=== PATIENT | male | born 1960 | race Caucasian/White ===

== ENCOUNTER 2018-05-27 06:55 | Observation (INO) | payer OTHER ==
[2018-05-27 07:59] LABS: ANION GAP 14.4; CHLORIDE,CL 95 mmol/L (101-111); SODIUM,NA 130 mmol/L (135-145)
--- NOTE | 2018-05-27 08:17 | EDM.PDOC ---
ED HPI GENERAL MEDICAL PROBLEM - General Chief Complaint: Skin Complaint Stated Complaint: [id number] WOUND ON LEG GETTING WORSE Time Seen by Provider: 05/27/18 07:09 Source of Information: Reports: Patient, RN, RN Notes Reviewed History Limitations: Reports: No Limitations - History of Present Illness INITIAL COMMENTS - FREE TEXT/NARRATIVE: Patient presented to ER with complaint of lethargy, fever, chills, diarrhea, headache, generalized body aches, and decreased appetite. This began x2 days ago. 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 He states he fell about 12 years ago and lost all feeling in feet and legs. The osteomyelitis began from a wound on the foot. He developed a sore on the bottom of the left foot after catching it on a door threshold. He states the wound has became discolored and has some serous drainage. Patient is on Coumadin after a lot from a PICC Line. He has had no nausea, vomiting, chest pain or shortness of breath. Onset: Gradual Duration: Getting Worse Location: Reports: Generalized Quality: Reports: Ache Severity: Severe Improves with: Reports: None Worsens with: Reports: None Associated Symptoms: Reports: No Other Symptoms Headache Pain Score (Numeric/FACES): 4 - Related Data Allergies Allergy/AdvReac Type Severity Reaction Status Date / Time codeine Allergy Nervousness Verified 05/27/18 09:31 Home Meds: Home Meds Warfarin [Coumadin] 5 mg PO DAILY 05/27/18 [History] levETIRAcetam [Keppra] 500 mg PO BID 05/27/18 [History] Social & Family History - Tobacco Use Smoking Status *Q: Former Smoker Used Tobacco, but Quit: Yes Month/Year Tobacco Last Used: 2011 - Recreational Drug Use Recreational Drug Use: No ED ROS GENERAL - Review of Systems Review Of Systems: ROS reveals no pertinent complaints other than HPI. ED EXAM, SKIN/RASH Exam: See Below Exam Limited By: No Limitations General Appearance: Alert, WD/WN, No Apparent Distress Eye Exam: Bilateral Eye: EOMI, Normal Inspection, PERRL Ears: Normal External Exam, Normal Canal, Hearing Grossly Normal, Normal TMs Nose: Normal Inspection, Normal Mucosa, No Blood Throat/Mouth: Normal Inspection, Normal Lips, Normal Teeth, Normal Gums, Normal Oropharynx, Normal Voice, No Airway Compromise Head: Atraumatic, Normocephalic Neck: Normal Inspection, Supple, Non-Tender, Full Range of Motion Respiratory/Chest: No Respiratory Distress, Lungs Clear, Normal Breath Sounds, No Accessory Muscle Use, Chest Non-Tender Cardiovascular: Normal Peripheral Pulses GI/Abdominal: Normal Bowel Sounds, Soft, Non-Tender, No Organomegaly, No Distention, No Abnormal Bruit, No Mass (Male) Exam: Deferred Rectal (Males) Exam: Deferred Back Exam: Normal Inspection, Full Range of Motion, NT Extremities: Normal Inspection, Normal Range of Motion, Non-Tender, No Pedal Edema, Normal Capillary Refill Neurological: Alert, Oriented, CN II-XII Intact, Normal Cognition, Normal Gait, Normal Reflexes, No Motor/Sensory Deficits Psychiatric: Normal Affect, Normal Mood Skin: Warm, Other (moist) Lymphatic: Other (anterior cervical +2-3) Course - Vital Signs Last Recorded V/S: Last Vital Signs Temp 98.4 F 05/27/18 09:29 Pulse 79 05/27/18 09:29 Resp 20 05/27/18 09:29 BP 141/86 H 05/27/18 09:29 Pulse Ox 97 05/27/18 09:29 - Orders/Labs/Meds Orders: Active Orders 24 hr Category Date Time Status CULTURE BLOOD [BC] Stat Lab 05/27/18 07:30 Received CULTURE BLOOD [BC] Stat Lab 05/27/18 07:56 Received CULTURE WOUND [RM] Urgent Lab 05/27/18 07:37 Received Blood Culture x2 Reflex Set [OM.PC] Stat Oth 05/27/18 07:50 Ordered Medication Orders Acetaminophen (Tylenol) 650 mg PO Q4H PRN PRN Reason: Pain (Mild 1-3)/fever Docusate Sodium (Colace) 100 mg PO BID PRN PRN Reason: Constipation Piperacillin Sod/Tazobactam (Sod 4.5 gm/ Sodium Chloride) 100 mls @ 200 mls/hr IV Q6HR ANAYELI Sodium Chloride (Normal Saline) 1,000 mls @ 125 mls/hr IV ASDIRECTED ANAYELI Potassium Chloride 20 meq/ (Premix) 100 mls @ 50 mls/hr IV ONETIME ONE Stop: 05/27/18 12:59 Vancomycin HCl 1.5 gm/ Sodium (Chloride) 500 mls @ 333.333 mls/hr IV Q8H ANAYELI Levetiracetam (Keppra) 500 mg PO BID [facility] Magnesium Hydroxide (Milk Of Magnesia) 30 ml PO Q12H PRN PRN Reason: Constipation Ondansetron HCl (Zofran) 4 mg IVPUSH Q8H PRN PRN Reason: Nausea/Vomiting Vancomycin HCl (Pharmacy To Dose - Vancomycin) 1 dose .XX ASDIRECTED [facility] Warfarin Sodium (Pharmacy To Dose - Warfarin) 1 dose .XX ASDIRECTED [facility] Warfarin Sodium (Coumadin) 5 mg PO ONETIME ONE Stop: 05/27/18 18:01 Labs: Laboratory Tests 05/27/18 05/27/18 05/27/18 Range/Units 07:32 07:32 07:32 WBC 10.0 (5.0-10.0) 10^3/uL RBC 5.15 (4.6-6.2) 10^6/uL Hgb 15.4 (14.0-18.0) g/dL Hct 44.9 (40.0-54.0) % MCV 87.2 (80-100) fL MCH 29.9 (27.0-34.0) pg MCHC 34.3 (33.0-35.0) g/dL Plt Count 118 L (150-450) 10^3/uL Neut % (Auto) 71.2 (42.2-75.2) % Lymph % (Auto) 15.6 L (20.5-50.1) % [place] % (Auto) 12.9 H (2-8) % Eos % (Auto) 0.1 L (1.0-3.0) % Baso % (Auto) 0.2 (0.0-1.0) % PT 19.7 H (9.0-12.0) SEC INR 2.0 H (0.9-1.2) Sodium 130 L (135-145) mmol/L Potassium 3.4 L (3.6-5.0) mmol/L Chloride 95 L (101-111) mmol/L Carbon Dioxide 24.0 (21.0-31.0) mmol/L Anion Gap 14.4 BUN 11 (7-18) mg/dL Creatinine 1.1 (0.6-1.3) mg/dL Est Cr Clr Drug Dosing 93.38 mL/min Estimated GFR (MDRD) > 60 BUN/Creatinine Ratio 10.00 Glucose 116 H (74-105) mg/dL Lactic Acid (0.5-2.2) mmol/L Calcium 8.6 (8.4-10.2) mg/dl Total Bilirubin 2.1 H (0.2-1.0) mg/dL AST 25 (10-42) IU/L ALT 16 (10-60) IU/L Alkaline Phosphatase 70 (42-121) IU/L Total Protein 8.6 H (6.7-8.2) g/dl Albumin 3.6 (3.2-5.5) g/dl Globulin 5.0 Albumin/Globulin Ratio 0.72 09/15/18 Range/Units 07:32 WBC (5.0-10.0) 10^3/uL RBC (4.6-6.2) 10^6/uL Hgb (14.0-18.0) g/dL Hct (40.0-54.0) % MCV (80-100) fL MCH (27.0-34.0) pg MCHC (33.0-35.0) g/dL Plt Count (150-450) 10^3/uL Neut % (Auto) (42.2-75.2) % Lymph % (Auto) (20.5-50.1) % [place] % (Auto) (2-8) % Eos % (Auto) (1.0-3.0) % Baso % (Auto) (0.0-1.0) % PT (9.0-12.0) SEC INR (0.9-1.2) Sodium (135-145) mmol/L Potassium (3.6-5.0) mmol/L Chloride (101-111) mmol/L Carbon Dioxide (21.0-31.0) mmol/L Anion Gap BUN (7-18) mg/dL Creatinine (0.6-1.3) mg/dL Est Cr Clr Drug Dosing mL/min Estimated GFR (MDRD) BUN/Creatinine Ratio Glucose (74-105) mg/dL Lactic Acid 2.3 H (0.5-2.2) mmol/L Calcium (8.4-10.2) mg/dl Total Bilirubin (0.2-1.0) mg/dL AST (10-42) IU/L ALT (10-60) IU/L Alkaline Phosphatase (42-121) IU/L Total Protein (6.7-8.2) g/dl Albumin (3.2-5.5) g/dl Globulin Albumin/Globulin Ratio Influenza A & B: Negative Meds: Medications Generic Name Dose Route Start Last Admin Trade Name Freq PRN Reason Stop Dose Admin Acetaminophen 650 mg 05/27/18 10:50 Tylenol PO Q4H PRN Pain (Mild 1-3)/fever Docusate Sodium 100 mg 05/27/18 10:50 Colace PO BID PRN Constipation Piperacillin Sod/Tazobactam 100 mls @ 200 mls/hr 05/27/18 12:00 Sod 4.5 gm/ Sodium Chloride IV Q6HR ANAYELI Sodium Chloride 1,000 mls @ 125 mls/hr 05/27/18 11:00 Normal Saline IV ASDIRECTED ANAYELI Potassium Chloride 20 meq/ 100 mls @ 50 mls/hr 05/27/18 11:00 Premix IV 05/27/18 12:59 ONETIME ONE Vancomycin HCl 1.5 gm/ Sodium 500 mls @ 333.333 mls/hr 05/27/18 12:00 Chloride IV Q8H ANAYELI Levetiracetam 500 mg 05/27/18 21:00 Keppra PO BID ANAYELI Magnesium Hydroxide 30 ml 05/27/18 10:50 Milk Of Magnesia PO Q12H PRN Constipation Ondansetron HCl 4 mg 05/27/18 10:50 Zofran IVPUSH Q8H PRN Nausea/Vomiting Vancomycin HCl 1 dose 05/27/18 11:00 Pharmacy To Dose - Vancomycin .XX ASDIRECTED [facility] Warfarin Sodium 1 dose 05/27/18 11:00 Pharmacy To Dose - Warfarin .XX ASDIRECTED [facility] Warfarin Sodium 5 mg 05/27/18 18:00 Coumadin PO 05/27/18 18:01 ONETIME ONE - Radiology Interpretation Free Text/Narrative:: Left foot xray: IMPRESSION: 1. Soft tissue swelling with infectious changes noted over the second and third metatarsals dorsally and on the plantar aspect. Findings are consistent with infectious etiology. Early osteomyelitis cannot be excluded. 2. Dislocation of the fourth metatarsophalangeal joint 3. Postoperative changes with amputation of the distal aspects of the second and third toes. Thank you for allowing us to participate in the care of your patient. Dictated and Authenticated by: Cosmo Acuna DO 05/27/2018 11:30 AM Central Time ([place] & [place]) See rad report Departure - Departure Time of Disposition: 08:51 Disposition: Refer to Observation Condition: Fair Clinical Impression: Elevated lactic acid level Wound, open, foot Qualifiers: Encounter type: initial encounter Laterality: left Qualified Code(s): S91.302A - Unspecified open wound, left foot, initial encounter Cellulitis Qualifiers: Site of cellulitis: extremity Site of cellulitis of extremity: lower extremity Laterality: left Qualified Code(s): L03.116 - Cellulitis of left lower limb - Discharge Information *PRESCRIPTION DRUG MONITORING PROGRAM REVIEWED*: No *COPY OF PRESCRIPTION DRUG MONITORING REPORT IN PATIENT SHMUEL: No - My Orders Last 24 Hours: My Active Orders 05/27/18 07:30 CULTURE BLOOD [BC] Stat 05/27/18 07:37 CULTURE WOUND [RM] Urgent 05/27/18 07:50 Blood Culture x2 Reflex Set [OM.PC] Stat 05/27/18 07:56 CULTURE BLOOD [BC] Stat - Assessment/Plan Last 24 Hours: My Active Orders 05/27/18 07:30 CULTURE BLOOD [BC] Stat 05/27/18 07:37 CULTURE WOUND [RM] Urgent 05/27/18 07:50 Blood Culture x2 Reflex Set [OM.PC] Stat 05/27/18 07:56 CULTURE BLOOD [BC] Stat
[2018-05-27] MEDS ORDERED: Ondansetron 4 MG/2 ML SDV IVPUSH PRN (10:50)
[2018-05-27] MEDS ORDERED: Magnesium Hydroxide 400 MG/5 ML Susp 30 ML Cup PO PRN (10:50)
[2018-05-27] MEDS ORDERED: Docusate Sodium 100 MG Cap PO PRN (10:50)
[2018-05-27] MEDS ORDERED: Acetaminophen 325 MG Tab PO PRN (10:50)
[2018-05-27] MEDS ORDERED: Potassium Chloride 20 MEQ in Premix Bag 1 BAG IV ONE (11:00)
[2018-05-27] MEDS: Sodium Chloride 0.9% 1,000 ML IV SCH ×2 (11:40→20:14)
[2018-05-27] MEDS ORDERED: Sodium Chloride 0.9% 10 ML Syringe FLUSH PRN (11:46)
[2018-05-27] MEDS: Piperacillin/Tazobactam 4.5 GM in Sodium Chloride 0.9% 100 ML IV SCH ×2 (11:46→21:01)
[2018-05-27] MEDS ORDERED: Vancomycin 1.5 GM in Sodium Chloride 0.9% 500 ML IV SCH (12:00)
--- NOTE | 2018-05-27 14:36 | PCM.HP ---
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 He presented to ER with redness to the left leg that started yesterday. He said he was fine when going to work in the morning. When he got back from work she noted tenderness, swelling, and redness to the left lower leg. He denies trauma. This is associated with lethargy, chills, one episode of diarrhea, headache, generalized body aches, and decreased appetite. The opend wound too the left foot is been on and off. He denies any discharge, pain or offensive selling to the wound. He says he follows with wound clinic. He denies chest pain, SOB, palpitation. In the ER of the left foot could not r/o early osteomyelitis. eft foot xray: IMPRESSION: 1. Soft tissue swelling with infectious changes noted over the second and third metatarsals dorsally and on the plantar aspect. Findings are consistent with infectious etiology. Early osteomyelitis cannot be excluded. 2. Dislocation of the fourth metatarsophalangeal joint 3. Postoperative changes with amputation of the distal aspects of the second and third toes. Thank you for allowing us to participate in the care of your patient. Dictated and Authenticated by: Cosmo Acuna DO 05/27/2018 11:30 AM Central Time ([place] & [place]) See rad report Onset of Symptoms: Reports: Sudden Duration of Symptoms: Reports: Hour(s): Location: Reports: Lower Extremity, Left Quality: Reports: Sharp Severity: Severe Improves with: Reports: None Worsens with: Reports: None Context: Reports: Activity/Exercise Associated Symptoms: Reports: No Other Symptoms Headache Pain Score (Numeric/FACES): 4 - Related Data Allergies/Adverse Reactions: Allergies Allergy/AdvReac Type Severity Reaction Status Date / Time codeine Allergy Nervousness Verified 05/27/18 09:31 Home Medications: Home Meds Warfarin [Coumadin] 5 mg PO DAILY 05/27/18 [History] levETIRAcetam [Keppra] 500 mg PO BID 05/27/18 [History] Past Medical History HEENT History: Reports: Impaired Vision Other HEENT History: Wears reading glasses Cardiovascular History: Reports: Blood Clots/VTE/DVT Musculoskeletal History: Reports: Amputation, Other (See Below) Other Musculoskeletal History: osteomyelitis Neurological History: Reports: Seizure, Other (See Below) Other Neuro History: 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 - Infectious Disease History Infectious Disease History: Reports: Chicken Pox, Shingles - Past Surgical History HEENT Surgical History: Reports: None Cardiovascular Surgical History: Reports: None GI Surgical History: Reports: Cholecystectomy Musculoskeletal Surgical History: Reports: Amputation Social & Family History - Family History Family Medical History: Noncontributory - Tobacco Use Smoking Status *Q: Former Smoker Years of Tobacco use: 12 Packs/Tins Daily: 1.5 Used Tobacco, but Quit: Yes Month/Year Tobacco Last Used: 2011 Second Hand Smoke Exposure: No - Caffeine Use Caffeine Use: Reports: None - Recreational Drug Use Recreational Drug Use: No H&P Review of Systems - Review of Systems: Review Of Systems: See Below General: Reports: Chills, Malaise, Weakness, Fatigue, Decreased Appetite HEENT: Reports: No Symptoms Pulmonary: Reports: No Symptoms Cardiovascular: Reports: No Symptoms Gastrointestinal: Reports: Anorexia, Diarrhea, Vomiting Genitourinary: Reports: No Symptoms Musculoskeletal: Reports: No Symptoms Skin: Reports: No Symptoms Psychiatric: Reports: No Symptoms Neurological: Reports: No Symptoms Hematologic/Lymphatic: Reports: No Symptoms Immunologic: Reports: No Symptoms Exam - Exam Exam: See Below - Vital Signs Vital Signs: Last Vital Signs Temp 98.4 F 05/27/18 09:29 Pulse 79 05/27/18 09:29 Resp 20 05/27/18 09:29 BP 141/86 H 05/27/18 09:29 Pulse Ox 97 05/27/18 10:50 Weight: 290 lb 6.4 oz - Exam Quality Assessment: DVT Prophylaxis General: Alert, Oriented, 4 HEENT: PERRLA, Hearing Intact, Mucosa Moist & [place], Nares Patent, Normal Nasal Septum, Posterior Pharynx Clear, Conjunctiva Clear, EOMI, EACs Clear, TMs Clear Neck: Supple, Trachea Midline, 2 Lungs: Clear to Auscultation, Normal Respiratory Effort Cardiovascular: Regular Rate, Regular Rhythm GI/Abdominal Exam: Normal Bowel Sounds, Soft, Non-Tender, No Organomegaly, No Distention, No Abnormal Bruit, No Mass, Pelvis Stable (Male) Exam: Deferred Rectal (Males) Exam: Deferred Back Exam: Normal Inspection, Full Range of Motion, NT Extremities: Leg Pain, Increased Warmth, Redness, Other (Redness to the left lower leg) Skin: Warm, Dry, Intact Neurological: Cranial Nerves Intact, Reflexes Equal Bilateral Neuro Extensive - Mental Status: Alert, Oriented x3, Normal Mood/Affect, Normal Cognition Neuro Extensive - Motor, Sensory, Reflexes: CN II-XII Intact, Normal Gait, Normal Reflexes Psychiatric: Alert, Normal Affect, Normal Mood - Patient Data Lab Results Last 24 hrs: Laboratory Results - last 24 hr 05/27/18 05/27/18 05/27/18 Range/Units 07:32 07:32 07:32 WBC 10.0 (5.0-10.0) 10^3/uL RBC 5.15 (4.6-6.2) 10^6/uL Hgb 15.4 (14.0-18.0) g/dL Hct 44.9 (40.0-54.0) % MCV 87.2 (80-100) fL MCH 29.9 (27.0-34.0) pg MCHC 34.3 (33.0-35.0) g/dL Plt Count 118 L (150-450) 10^3/uL Neut % (Auto) 71.2 (42.2-75.2) % Lymph % (Auto) 15.6 L (20.5-50.1) % [place] % (Auto) 12.9 H (2-8) % Eos % (Auto) 0.1 L (1.0-3.0) % Baso % (Auto) 0.2 (0.0-1.0) % PT 19.7 H (9.0-12.0) SEC INR 2.0 H (0.9-1.2) Sodium 130 L (135-145) mmol/L Potassium 3.4 L (3.6-5.0) mmol/L Chloride 95 L (101-111) mmol/L Carbon Dioxide 24.0 (21.0-31.0) mmol/L Anion Gap 14.4 BUN 11 (7-18) mg/dL Creatinine 1.1 (0.6-1.3) mg/dL Est Cr Clr Drug Dosing 93.38 mL/min Estimated GFR (MDRD) > 60 BUN/Creatinine Ratio 10.00 Glucose 116 H (74-105) mg/dL Lactic Acid (0.5-2.2) mmol/L Calcium 8.6 (8.4-10.2) mg/dl Total Bilirubin 2.1 H (0.2-1.0) mg/dL AST 25 (10-42) IU/L ALT 16 (10-60) IU/L Alkaline Phosphatase 70 (42-121) IU/L Total Protein 8.6 H (6.7-8.2) g/dl Albumin 3.6 (3.2-5.5) g/dl Globulin 5.0 Albumin/Globulin Ratio 0.72 Urine Color (YELLOW) Urine Appearance (CLEAR) Urine pH (5.0-9.0) Ur Specific [place] (1.005-1.030) Urine Protein (NEGATIVE) Urine Glucose (UA) (NEGATIVE) Urine Ketones (NEGATIVE) Urine Occult Blood (NEGATIVE) Urine Nitrite (NEGATIVE) Urine Bilirubin (NEGATIVE) Urine Urobilinogen (0.2-1.0) mg/dL Ur Leukocyte Esterase (NEGATIVE) Urine RBC /HPF Urine WBC (0-5/HPF) /HPF Ur Epithelial Cells /HPF Urine Bacteria (0-FEW/HPF) /HPF 18 05/27/18 Range/Units 07:32 11:45 WBC (5.0-10.0) 10^3/uL RBC (4.6-6.2) 10^6/uL Hgb (14.0-18.0) g/dL Hct (40.0-54.0) % MCV (80-100) fL MCH (27.0-34.0) pg MCHC (33.0-35.0) g/dL Plt Count (150-450) 10^3/uL Neut % (Auto) (42.2-75.2) % Lymph % (Auto) (20.5-50.1) % [place] % (Auto) (2-8) % Eos % (Auto) (1.0-3.0) % Baso % (Auto) (0.0-1.0) % PT (9.0-12.0) SEC INR (0.9-1.2) Sodium (135-145) mmol/L Potassium (3.6-5.0) mmol/L Chloride (101-111) mmol/L Carbon Dioxide (21.0-31.0) mmol/L Anion Gap BUN (7-18) mg/dL Creatinine (0.6-1.3) mg/dL Est Cr Clr Drug Dosing mL/min Estimated GFR (MDRD) BUN/Creatinine Ratio Glucose (74-105) mg/dL Lactic Acid 2.3 H (0.5-2.2) mmol/L Calcium (8.4-10.2) mg/dl Total Bilirubin (0.2-1.0) mg/dL AST (10-42) IU/L ALT (10-60) IU/L Alkaline Phosphatase (42-121) IU/L Total Protein (6.7-8.2) g/dl Albumin (3.2-5.5) g/dl Globulin Albumin/Globulin Ratio Urine Color Dark yellow (YELLOW) Urine Appearance Clear (CLEAR) Urine pH 6.5 (5.0-9.0) Ur Specific [place] <= 1.005 (1.005-1.030) Urine Protein Negative (NEGATIVE) Urine Glucose (UA) Negative (NEGATIVE) Urine Ketones 15 H (NEGATIVE) Urine Occult Blood Moderate H (NEGATIVE) Urine Nitrite Negative (NEGATIVE) Urine Bilirubin Negative (NEGATIVE) Urine Urobilinogen 0.2 (0.2-1.0) mg/dL Ur Leukocyte Esterase Negative (NEGATIVE) Urine RBC 5-10 H /HPF Urine WBC Not seen (0-5/HPF) /HPF Ur Epithelial Cells Rare /HPF Urine Bacteria Rare (0-FEW/HPF) /HPF Result Diagrams: 05/27/18 07:32 05/27/18 07:32 [place] Results Last 24 hrs: Microbiology 05/27/18 07:37 Influenza Type A Antigen Screen - Final Nasal, Unspecified NEGATIVE INFLUENZA A VIRUS AG Influenza Type B Antigen Screen - Final NEGATIVE INFLUENZA B VIRUS AG - Problem List (1) Sepsis SNOMED Code(s): 13018138 ICD Code: A41.9 - SEPSIS, UNSPECIFIED ORGANISM Status: Acute Current Visit: Yes Problem List Initiated/Reviewed/Updated: Yes Orders Last 24hrs: Active Orders 24 hr Category Date Time Status Patient Status [ADT] Routine ADT 05/27/18 10:50 Active Ambulate [RC] ASDIRECTED Care 05/27/18 10:50 Active Intake and Output [RC] QSHIFT Care 05/27/18 10:52 Active Oxygen Therapy [RC] PRN Care 05/27/18 10:50 Active Peripheral IV Care [RC] 09,21 Care 05/27/18 11:46 Active Vital Signs [RC] Q4H Care 05/27/18 10:50 Active Regular Diet [DIET] Diet 05/27/18 Lunch Active CBC WITH AUTO DIFF [HEME] DAILY Lab 05/28/18 05:00 Ordered CULTURE BLOOD [BC] Stat Lab 05/27/18 07:30 Received CULTURE BLOOD [BC] Stat Lab 05/27/18 07:56 Received CULTURE WOUND [RM] Urgent Lab 05/27/18 07:37 Received INR,PT,PROTHROMBIN TIME [COAG] DAILY Lab 05/28/18 05:00 Ordered VANCOMYCIN TROUGH [CHEM] Timed Lab 05/28/18 13:30 Ordered Acetaminophen [Tylenol] Med 05/27/18 10:50 Active 650 mg PO Q4H PRN Docusate Sodium [Colace] Med 05/27/18 10:50 Active 100 mg PO BID PRN Magnesium Hydroxide [Milk of Magnesia] Med 05/27/18 10:50 Active 30 ml PO Q12H PRN Ondansetron [Zofran] Med 05/27/18 10:50 Active 4 mg IVPUSH Q8H PRN Piperacillin/Tazobactam [Zosyn] 4.5 gm Med 05/27/18 12:00 Active Sodium Chloride 0.9% [Normal Saline] 100 ml IV Q6HR Sodium Chloride 0.9% [Normal Saline] 1,000 ml Med 05/27/18 11:00 Active IV ASDIRECTED Sodium Chloride 0.9% [Saline Flush] Med 05/27/18 11:46 Active 10 ml FLUSH ASDIRECTED PRN Vancomycin 1.5 gm Med 05/27/18 14:00 Active Sodium Chloride 0.9% [Normal Saline] 500 ml IV Q8H Vancomycin Pharmacy to Dose [Pharmacy to Dose - Med 05/27/18 11:00 Pending Vancomycin] 1 dose .XX ASDIRECTED Warfarin Pharmacy to Dose [Pharmacy to Dose - Warfarin] Med 05/27/18 11:00 Pending 1 dose .XX ASDIRECTED Warfarin [Coumadin] Med 05/27/18 18:00 Once 5 mg PO ONETIME ONE levETIRAcetam [Keppra] Med 05/27/18 21:00 Active 500 mg PO BID Blood Culture x2 Reflex Set [OM.PC] Stat Oth 05/27/18 07:50 Ordered Peripheral IV Insertion Adult [OM.PC] Routine Oth 05/27/18 11:46 Ordered Resuscitation Status Routine Resus Stat 05/27/18 10:50 Ordered Medication Orders Acetaminophen (Tylenol) 650 mg PO Q4H PRN PRN Reason: Pain (Mild 1-3)/fever Docusate Sodium (Colace) 100 mg PO BID PRN PRN Reason: Constipation Piperacillin Sod/Tazobactam (Sod 4.5 gm/ Sodium Chloride) 100 mls @ 200 mls/hr IV Q6HR [facility] Last Admin: 05/27/18 11:46 Dose: 200 mls/hr Sodium Chloride (Normal Saline) 1,000 mls @ 125 mls/hr IV ASDIRECTED [facility] Last Admin: 05/27/18 11:40 Dose: 125 mls/hr Vancomycin HCl 1.5 gm/ Sodium (Chloride) 500 mls @ 333.333 mls/hr IV Q8H ANAYELI Levetiracetam (Keppra) 500 mg PO BID ANAYELI Magnesium Hydroxide (Milk Of Magnesia) 30 ml PO Q12H PRN PRN Reason: Constipation Ondansetron HCl (Zofran) 4 mg IVPUSH Q8H PRN PRN Reason: Nausea/Vomiting Sodium Chloride (Saline Flush) 10 ml FLUSH ASDIRECTED PRN PRN Reason: Keep Vein Open Vancomycin HCl (Pharmacy To Dose - Vancomycin) 1 dose .XX ASDIRECTED [facility] Warfarin Sodium (Pharmacy To Dose - Warfarin) 1 dose .XX ASDIRECTED [facility] Warfarin Sodium (Coumadin) 5 mg PO ONETIME ONE Stop: 05/27/18 18:01 Assessment/Plan Comment:: Left leg cellulites Admit to inpatient status IVF IV Zosyn and vanco blood cx woung cx elevate left leg 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
[2018-05-27] MEDS: Vancomycin 1.5 GM in Sodium Chloride 0.9% 500 ML IV SCH ×2 (17:00→21:55)
[2018-05-27] MEDS ORDERED: Warfarin 5 MG Tab PO ONE (18:00)
[2018-05-27] MEDS: levETIRAcetam 500 MG Tab PO SCH (21:01)
[2018-05-28] MEDS: Piperacillin/Tazobactam 4.5 GM in Sodium Chloride 0.9% 100 ML IV SCH ×4 (00:02→17:48)
[2018-05-28] MEDS: Vancomycin 1.5 GM in Sodium Chloride 0.9% 500 ML IV SCH ×3 (05:58→21:52)
[2018-05-28 06:46] LABS: ANION GAP 11.6; CHLORIDE,CL 105 mmol/L (101-111); SODIUM,NA 135 mmol/L (135-145)
[2018-05-28] MEDS: Sodium Chloride 0.9% 1,000 ML IV SCH ×2 (09:34→18:59)
[2018-05-28] MEDS: levETIRAcetam 500 MG Tab PO SCH ×2 (09:36→21:52)
--- NOTE | 2018-05-28 11:35 | PCM.PN ---
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 He presented to ER with redness to the left leg that started yesterday. He was found to have sepsis due to left leg cellulites and subsequently admitted. He was started on IV abx. Seen and examined this morning. Patient doing well. No acute overnight event. Redness and swelling of left leg improved significantly. Denies any new complaint. Functional Status: Reports: Pain Controlled - Review of Systems General: Reports: No Symptoms HEENT: Reports: No Symptoms Pulmonary: Reports: No Symptoms Cardiovascular: Reports: No Symptoms Gastrointestinal: Reports: No Symptoms Genitourinary: Reports: No Symptoms Musculoskeletal: Reports: Foot Pain Skin: Reports: No Symptoms, Other (redness and swelling to left leg improved) Neurological: Reports: No Symptoms Psychiatric: Reports: No Symptoms - Patient Data Vitals - Most Recent: Last Vital Signs Temp 98.3 F 05/28/18 07:56 Pulse 57 L 05/28/18 07:56 Resp 20 05/28/18 07:56 BP 118/72 05/28/18 07:56 Pulse Ox 99 05/28/18 10:50 Weight - Most Recent: 290 lb 6.4 oz I&O - Last 24 Hours: Intake & Output 05/27/18 05/28/18 05/28/18 22:59 06:59 14:59 Intake Total 1729 2394 1050 Balance 1729 2394 1050 Lab Results Last 24 Hours: Laboratory Results - last 24 hr 05/27/18 05/27/18 05/28/18 Range/Units 11:45 20:00 00:20 WBC (5.0-10.0) 10^3/uL RBC (4.6-6.2) 10^6/uL Hgb (14.0-18.0) g/dL Hct (40.0-54.0) % MCV (80-100) fL MCH (27.0-34.0) pg MCHC (33.0-35.0) g/dL Plt Count (150-450) 10^3/uL Neut % (Auto) (42.2-75.2) % Lymph % (Auto) (20.5-50.1) % [place] % (Auto) (2-8) % Eos % (Auto) (1.0-3.0) % Baso % (Auto) (0.0-1.0) % PT (9.0-12.0) SEC INR (0.9-1.2) Sodium (135-145) mmol/L Potassium (3.6-5.0) mmol/L Chloride (101-111) mmol/L Carbon Dioxide (21.0-31.0) mmol/L Anion Gap BUN (7-18) mg/dL Creatinine (0.6-1.3) mg/dL Est Cr Clr Drug Dosing mL/min Estimated GFR (MDRD) Glucose (74-105) mg/dL Lactic Acid 0.9 0.7 (0.5-2.2) mmol/L Calcium (8.4-10.2) mg/dl Urine Color Dark yellow (YELLOW) Urine Appearance Clear (CLEAR) Urine pH 6.5 (5.0-9.0) Ur Specific [place] <= 1.005 (1.005-1.030) Urine Protein Negative (NEGATIVE) Urine Glucose (UA) Negative (NEGATIVE) Urine Ketones 15 H (NEGATIVE) Urine Occult Blood Moderate H (NEGATIVE) Urine Nitrite Negative (NEGATIVE) Urine Bilirubin Negative (NEGATIVE) Urine Urobilinogen 0.2 (0.2-1.0) mg/dL Ur Leukocyte Esterase Negative (NEGATIVE) Urine RBC 5-10 H /HPF Urine WBC Not seen (0-5/HPF) /HPF Ur Epithelial Cells Rare /HPF Urine Bacteria Rare (0-FEW/HPF) /HPF 05/28/18 05/28/18 05/28/18 Range/Units 06:02 06:02 06:02 WBC 7.1 (5.0-10.0) 10^3/uL RBC 4.68 (4.6-6.2) 10^6/uL Hgb 14.0 (14.0-18.0) g/dL Hct 41.0 (40.0-54.0) % MCV 87.6 (80-100) fL MCH 29.9 (27.0-34.0) pg MCHC 34.1 (33.0-35.0) g/dL Plt Count 114 L (150-450) 10^3/uL Neut % (Auto) 60.7 (42.2-75.2) % Lymph % (Auto) 21.6 (20.5-50.1) % [place] % (Auto) 15.7 H (2-8) % Eos % (Auto) 1.6 (1.0-3.0) % Baso % (Auto) 0.4 (0.0-1.0) % PT 25.0 H (9.0-12.0) SEC INR 2.6 H (0.9-1.2) Sodium 135 (135-145) mmol/L Potassium 3.6 (3.6-5.0) mmol/L Chloride 105 (101-111) mmol/L Carbon Dioxide 22.0 (21.0-31.0) mmol/L Anion Gap 11.6 BUN 9 (7-18) mg/dL Creatinine 0.9 (0.6-1.3) mg/dL Est Cr Clr Drug Dosing 114.13 mL/min Estimated GFR (MDRD) > 60 Glucose 95 (74-105) mg/dL Lactic Acid (0.5-2.2) mmol/L Calcium 7.8 L (8.4-10.2) mg/dl Urine Color (YELLOW) Urine Appearance (CLEAR) Urine pH (5.0-9.0) Ur Specific [place] (1.005-1.030) Urine Protein (NEGATIVE) Urine Glucose (UA) (NEGATIVE) Urine Ketones (NEGATIVE) Urine Occult Blood (NEGATIVE) Urine Nitrite (NEGATIVE) Urine Bilirubin (NEGATIVE) Urine Urobilinogen (0.2-1.0) mg/dL Ur Leukocyte Esterase (NEGATIVE) Urine RBC /HPF Urine WBC (0-5/HPF) /HPF Ur Epithelial Cells /HPF Urine Bacteria (0-FEW/HPF) /HPF [place] Results Last 24 Hours: Microbiology 05/27/18 07:56 Aerobic Blood Culture - Preliminary Blood - Venous - Lab Draw NO GROWTH AFTER 1 DAY Anaerobic Blood Culture - Preliminary NO GROWTH AFTER 1 DAY 05/27/18 07:30 Aerobic Blood Culture - Preliminary Blood - Venous NO GROWTH AFTER 1 DAY Anaerobic Blood Culture - Preliminary NO GROWTH AFTER 1 DAY 05/27/18 07:37 Influenza Type A Antigen Screen - Final Nasal, Unspecified NEGATIVE INFLUENZA A VIRUS AG Influenza Type B Antigen Screen - Final NEGATIVE INFLUENZA B VIRUS AG Med Orders - Current: Current Medications Acetaminophen (Tylenol) 650 mg PO Q4H PRN PRN Reason: Pain (Mild 1-3)/fever Docusate Sodium (Colace) 100 mg PO BID PRN PRN Reason: Constipation Piperacillin Sod/Tazobactam (Sod 4.5 gm/ Sodium Chloride) 100 mls @ 200 mls/hr IV Q6HR [facility] Last Admin: 05/28/18 05:25 Dose: 200 mls/hr Sodium Chloride (Normal Saline) 1,000 mls @ 150 mls/hr IV ASDIRECTED [facility] Last Admin: 05/28/18 09:34 Dose: 150 mls/hr Vancomycin HCl 1.5 gm/ Sodium (Chloride) 500 mls @ 333.333 mls/hr IV Q8H [facility] Last Admin: 05/28/18 05:58 Dose: 333.333 mls/hr Levetiracetam (Keppra) 500 mg PO BID [facility] Last Admin: 05/28/18 09:36 Dose: 500 mg Magnesium Hydroxide (Milk Of Magnesia) 30 ml PO Q12H PRN PRN Reason: Constipation Ondansetron HCl (Zofran) 4 mg IVPUSH Q8H PRN PRN Reason: Nausea/Vomiting Sodium Chloride (Saline Flush) 10 ml FLUSH ASDIRECTED PRN PRN Reason: Keep Vein Open Vancomycin HCl (Pharmacy To Dose - Vancomycin) 1 dose .XX ASDIRECTED [facility] Warfarin Sodium (Pharmacy To Dose - Warfarin) 1 dose .XX ASDIRECTED [facility] Warfarin Sodium (Coumadin) 5 mg PO ONETIME ONE Stop: 05/28/18 18:01 Discontinued Medications Potassium Chloride 20 meq/ (Premix) 100 mls @ 50 mls/hr IV ONETIME ONE Stop: 05/27/18 12:59 Last Infusion: 05/27/18 17:04 Dose: Infused Vancomycin HCl 1.5 gm/ Sodium (Chloride) 500 mls @ 333.333 mls/hr IV Q8H [facility] Last Admin: 05/27/18 17:33 Dose: Not Given Warfarin Sodium (Coumadin) 5 mg PO ONETIME ONE Stop: 05/27/18 18:01 Last Admin: 05/27/18 17:05 Dose: 5 mg - Exam Quality Assessment: DVT Prophylaxis General: Alert, Oriented HEENT: Pupils Equal, Pupils Reactive, EOMI, Mucous Membr. Moist/[place] Neck: Supple Lungs: Clear to Auscultation, Normal Respiratory Effort Cardiovascular: Regular Rate, Regular Rhythm GI/Abdominal Exam: Normal Bowel Sounds, Soft, Non-Tender, No Organomegaly, No Distention, No Abnormal Bruit, No Mass, Pelvis Stable (Male) Exam: Deferred Back Exam: Normal Inspection, Full Range of Motion Extremities: Increased Warmth, Redness Skin: Warm, Dry, Intact Wound/Incisions: Healing Well Neurological: No New Focal Deficit Psy/Mental Status: Alert, Normal Affect, Normal Mood - Problem List & Annotations (1) Sepsis SNOMED Code(s): 60115694 Code(s): A41.9 - SEPSIS, UNSPECIFIED ORGANISM Status: Acute Current Visit : Yes - Problem List Review Problem List Initiated/Reviewed/Updated: Yes - My Orders Last 24 Hours: My Active Orders 05/27/18 10:50 Patient Status [ADT] Routine Ambulate [RC] ASDIRECTED Oxygen Therapy [RC] PRN Vital Signs [RC] Q4H Acetaminophen [Tylenol] 650 mg PO Q4H PRN Docusate Sodium [Colace] 100 mg PO BID PRN Magnesium Hydroxide [Milk of Magnesia] 30 ml PO Q12H PRN Ondansetron [Zofran] 4 mg IVPUSH Q8H PRN Resuscitation Status Routine 05/27/18 10:52 Intake and Output [RC] QSHIFT 05/27/18 11:00 Sodium Chloride 0.9% [Normal Saline] 1,000 ml IV ASDIRECTED Vancomycin Pharmacy to Dose [Pharmacy to Dose - Vancomycin] 1 dose .XX ASDIRECTED Warfarin Pharmacy to Dose [Pharmacy to Dose - Warfarin] 1 dose .XX ASDIRECTED 05/27/18 11:46 Peripheral IV Care [RC] 09, Sodium Chloride 0.9% [Saline Flush] 10 ml FLUSH ASDIRECTED PRN Peripheral IV Insertion Adult [OM.PC] Routine 05/27/18 12:00 Piperacillin/Tazobactam [Zosyn] 4.5 gm Sodium Chloride 0.9% [Normal Saline] 100 ml IV Q6HR 05/27/18 14:00 Vancomycin 1.5 gm Sodium Chloride 0.9% [Normal Saline] 500 ml IV Q8H 05/27/18 14:59 Wound Care [RC] Q12H 05/27/18 21:00 levETIRAcetam [Keppra] 500 mg PO BID 05/27/18 Lunch Regular Diet [DIET] 05/28/18 18:00 Warfarin [Coumadin] 5 mg PO ONETIME ONE - Plan Plan:: Left leg cellulites improving IVF continue IV Zosyn and vanco Follow blood cx and woung cx elevate left leg 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
[2018-05-28] MEDS ORDERED: Warfarin 5 MG Tab PO ONE (18:00)
[2018-05-29] MEDS: Piperacillin/Tazobactam 4.5 GM in Sodium Chloride 0.9% 100 ML IV SCH ×2 (00:07→05:22)
[2018-05-29] MEDS: Sodium Chloride 0.9% 1,000 ML IV SCH (04:20)
[2018-05-29] MEDS: Vancomycin 1.5 GM in Sodium Chloride 0.9% 500 ML IV SCH (05:22)
[2018-05-29 06:49] LABS: ANION GAP 8.6; CHLORIDE,CL 107 mmol/L (101-111); SODIUM,NA 136 mmol/L (135-145)
[2018-05-29] MEDS: levETIRAcetam 500 MG Tab PO SCH (09:03)
--- NOTE | 2018-05-29 10:25 | PCM.DCSUM1 ---
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 He presented to ER with redness to the left leg that started yesterday. He was found to have sepsis due to left leg cellulites and subsequently admitted. Wound cx positive for heavy growth of strept sp and staph aureus. X-ray of left foot could not r/o osteomyelitis. He was managed on IV abx with significant improvement. Patient is being discharge home on PO clindamycin. He will follow with his PCP and wound clinic. Diagnosis: Stroke: No - Discharge Data Discharge Date: 05/29/18 Discharge Disposition: Home, Self-Care 01 Condition: Good - Discharge Diagnosis/Problem(s) (1) Sepsis SNOMED Code(s): 83652958 ICD Code: A41.9 - SEPSIS, UNSPECIFIED ORGANISM Status: Acute Current Visit: Yes - Patient Instructions Activity: As Tolerated Driving: May Drive Today Showering/Bathing: May Shower Notify Provider of: Fever, Increased Pain, Swelling and Redness, Nausea and/or Vomiting - Discharge Plan *PRESCRIPTION DRUG MONITORING PROGRAM REVIEWED*: No *COPY OF PRESCRIPTION DRUG MONITORING REPORT IN PATIENT SHMUEL: No Prescriptions/Med Rec: Acetaminophen [Tylenol] 650 mg PO Q8H PRN 5 Days #20 tablet PRN Reason: Pain (Mild 1-3)/fever Clindamycin HCl [Cleocin] 300 mg PO Q8H 7 Days #42 cap Home Medications: Home Meds Warfarin [Coumadin] 5 mg PO DAILY 05/27/18 [History] levETIRAcetam [Keppra] 500 mg PO BID 05/27/18 [History] Acetaminophen [Tylenol] 650 mg PO Q8H PRN 5 Days #20 tablet 05/29/18 [Rx] Clindamycin HCl [Cleocin] 300 mg PO Q8H 7 Days #42 cap 05/29/18 [Rx] Forms: ED Department Discharge Referrals: PCP,Not In Area [Primary Care Provider] - - Discharge Summary/Plan Comment DC Time >30 min.: Yes - General Info Admission Dx/Problem (Free Text: Admission Diagnosis/Problem Admission Diagnosis/Problem Cellulitis Subjective Update: Patient is 58 y/o M from [place] with PMH of rt BKA, 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 He presented to ER with redness to the left leg that started yesterday. He was found to have sepsis due to left leg cellulites and subsequently admitted. Wound cx positive for heavy growth of strept sp and staph aureus. X-ray of left foot could not r/o osteomyelitis. He was managed on IV abx with significant improvement. Patient is being discharge home on PO clindamycin. He will follow with his PCP and wound clinic. Functional Status: Reports: Pain Controlled - Review of Systems General: Reports: No Symptoms HEENT: Reports: No Symptoms Pulmonary: Reports: No Symptoms Cardiovascular: Reports: No Symptoms Gastrointestinal: Reports: No Symptoms Genitourinary: Reports: No Symptoms Musculoskeletal: Reports: No Symptoms Skin: Reports: No Symptoms Neurological: Reports: No Symptoms Psychiatric: Reports: No Symptoms - Patient Data Vitals - Most Recent: Last Vital Signs Temp 97.8 F 05/29/18 08:20 Pulse 61 05/29/18 08:20 Resp 20 05/29/18 08:20 BP 128/67 05/29/18 08:20 Pulse Ox 98 05/29/18 08:20 Weight - Most Recent: 290 lb 6.4 oz I&O - Last 24 hours: Intake & Output 05/28/18 05/29/18 05/29/18 22:59 06:59 14:59 Intake Total 3549 1100 533 Balance 3549 1100 533 Lab Results - Last 24 hrs: Laboratory Results - last 24 hr 05/28/18 05/29/18 05/29/18 Range/Units 13:45 06:05 06:05 WBC 3.8 L (5.0-10.0) 10^3/uL RBC 4.51 L (4.6-6.2) 10^6/uL Hgb 13.5 L (14.0-18.0) g/dL Hct 39.6 L (40.0-54.0) % MCV 87.8 (80-100) fL MCH 29.9 (27.0-34.0) pg MCHC 34.1 (33.0-35.0) g/dL Plt Count 126 L (150-450) 10^3/uL Neut % (Auto) 45.9 (42.2-75.2) % Lymph % (Auto) 35.2 (20.5-50.1) % [place] % (Auto) 14.9 H (2-8) % Eos % (Auto) 3.5 H (1.0-3.0) % Baso % (Auto) 0.5 (0.0-1.0) % Sodium 136 (135-145) mmol/L Potassium 3.6 (3.6-5.0) mmol/L Chloride 107 (101-111) mmol/L Carbon Dioxide 24.0 (21.0-31.0) mmol/L Anion Gap 8.6 BUN 6 L (7-18) mg/dL Creatinine 0.9 (0.6-1.3) mg/dL Est Cr Clr Drug Dosing 114.13 mL/min Estimated GFR (MDRD) > 60 Glucose 97 (74-105) mg/dL Calcium 7.7 L (8.4-10.2) mg/dl Vancomycin Trough 18.1 H (10-15) ug/ml OTTO Results - Last 24 hrs: Microbiology 05/27/18 07:56 Aerobic Blood Culture - Preliminary Blood - Venous - Lab Draw NO GROWTH AFTER 2 DAYS Anaerobic Blood Culture - Preliminary NO GROWTH AFTER 2 DAYS 05/27/18 07:30 Aerobic Blood Culture - Preliminary Blood - Venous NO GROWTH AFTER 2 DAYS Anaerobic Blood Culture - Preliminary NO GROWTH AFTER 2 DAYS 05/27/18 07:37 Wound Culture - Preliminary Foot, Left Med Orders - Current: Current Medications Acetaminophen (Tylenol) 650 mg PO Q4H PRN PRN Reason: Pain (Mild 1-3)/fever Last Admin: 05/29/18 09:07 Dose: 650 mg Clindamycin HCl (Cleocin) 300 mg PO Q8H [facility] Docusate Sodium (Colace) 100 mg PO BID PRN PRN Reason: Constipation Sodium Chloride (Normal Saline) 1,000 mls @ 150 mls/hr IV ASDIRECTED [facility] Last Admin: 05/29/18 04:20 Dose: 150 mls/hr Levetiracetam (Keppra) 500 mg PO BID [facility] Last Admin: 05/29/18 09:03 Dose: 500 mg Magnesium Hydroxide (Milk Of Magnesia) 30 ml PO Q12H PRN PRN Reason: Constipation Ondansetron HCl (Zofran) 4 mg IVPUSH Q8H PRN PRN Reason: Nausea/Vomiting Sodium Chloride (Saline Flush) 10 ml FLUSH ASDIRECTED PRN PRN Reason: Keep Vein Open Warfarin Sodium (Pharmacy To Dose - Warfarin) 1 dose .XX ASDIRECTED [facility] Discontinued Medications Piperacillin Sod/Tazobactam (Sod 4.5 gm/ Sodium Chloride) 100 mls @ 200 mls/hr IV Q6HR [facility] Last Admin: 05/29/18 05:22 Dose: 200 mls/hr Potassium Chloride 20 meq/ (Premix) 100 mls @ 50 mls/hr IV ONETIME ONE Stop: 05/27/18 12:59 Last Infusion: 05/27/18 17:04 Dose: Infused Vancomycin HCl 1.5 gm/ Sodium (Chloride) 500 mls @ 333.333 mls/hr IV Q8H [facility] Last Admin: 05/27/18 17:33 Dose: Not Given Vancomycin HCl 1.5 gm/ Sodium (Chloride) 500 mls @ 333.333 mls/hr IV Q8H [facility] Last Admin: 05/29/18 05:22 Dose: 333.333 mls/hr Vancomycin HCl (Pharmacy To Dose - Vancomycin) 1 dose .XX ASDIRECTED [facility] Warfarin Sodium (Coumadin) 5 mg PO ONETIME ONE Stop: 05/27/18 18:01 Last Admin: 05/27/18 17:05 Dose: 5 mg Warfarin Sodium (Coumadin) 5 mg PO ONETIME ONE Stop: 05/28/18 18:01 Last Admin: 05/28/18 17:51 Dose: 5 mg - Exam General: Reports: Alert, Oriented HEENT: Reports: Pupils Equal, Pupils Reactive, EOMI, Mucous Membr. Moist/[place] Neck: Reports: Supple Lungs: Reports: Clear to Auscultation, Normal Respiratory Effort Cardiovascular: Reports: Regular Rate, Regular Rhythm GI/Abdominal Exam: Normal Bowel Sounds, Soft, Non-Tender, No Organomegaly, No Distention, No Abnormal Bruit, No Mass, Pelvis Stable (Male) Exam: No Hernia, Normal Inspection, Normal Prostate, Circumcised Rectal (Males) Exam: Normal Exam, Normal Rectal Tone, Prostate Normal Back Exam: Reports: Normal Inspection, Full Range of Motion Extremities: Normal Inspection, Normal Range of Motion, Non-Tender, No Pedal Edema, Normal Capillary Refill Skin: Reports: Warm, Dry, Intact Wound/Incisions: Reports: Healing Well Neurological: Reports: No New Focal Deficit Psy/Mental Status: Reports: Alert, Normal Affect, Normal Mood
[2018-05-29] MEDS ORDERED: Clindamycin HCl 150 MG Cap PO SCH (10:30)
[2018-05-29] MEDS ORDERED: Warfarin 5 MG Tab PO ONE (14:00)
== END 2018-05-29 13:03 | disposition home or self-care (01) ==
LOC: DL.ED 06:55 → UNDOADMOB 08:37 → DL.MS 08:37
PROVIDERS: ADMIT Student in an Organized Health Care Education/Training Program; ATTEND Student in an Organized Health Care Education/Training Program
DX: L03.116 Cellulitis of left lower limb (principal); A41.01 Sepsis due to Methicillin susceptible Staphylococcus aureus; Z79.01 Long term (current) use of anticoagulants; Z79.2 Long term (current) use of antibiotics; Z89.422 Acquired absence of other left toe(s); Z88.5 Allergy status to narcotic agent; Z87.891 Personal history of nicotine dependence
CPT/HCPCS: 36415; 73630; 80048; 80053; 80202; 81001; 83605; 85025; 85610; 87040; 87070; 87077; 87186; 87804; 99285; A9270; J2543; J3370; J3480; J7030; J7040; J7050; 96361; 96365; 96366; 96367; 99283; G0378